=== PATIENT | female | born 1935 | race Caucasian/White ===

== ENCOUNTER 2017-07-20 05:25 | Day surgery (SDC) | payer MEDICARE ==
[2017-07-19 10:07] LABS: BASOPHILS 0.1 % (0-2); EOSINOPHILS 1.3 % (0-7); HEMATOCRIT 37.8 % (36.0-48.0); HEMOGLOBIN 13.2 g/dL (12-16); IMMATURE GRANULOCYTES 1.9 % (0-5); LYMPHOCYTES 15.3 % (15-50); MCH 31.1 pg (26.0-34.0); MCHC 34.9 g/dL (31.0-37.0); MCV 88.9 fL (80.0-100.0); MEAN PLATELET VOLUME 9.5 fL (7.4-10.4); MONOCYTES 13.8 % (2-11); NEUTROPHILS 67.6 % (40-80); PLATELET COUNT 322 10x3/uL (130-400); RBC 4.25 10x6/uL (4.00-5.40); RDW 13.5 % (11.5-14.5)
[2017-07-19 10:15] LABS: ANION GAP 12.4 mmol/L (8-16); CALCIUM 9.5 mg/dL (8.5-10.1); CARBON DIOXIDE 30.2 mmol/L (21.0-32.0); POTASSIUM - SERUM 3.6 mmol/L (3.5-5.1)
[2017-07-19 10:16] LABS: APTT 24.9 SECONDS (22.8-39.4); INR 0.96 (0.85-1.17); PROTIME 12.4 SECONDS (11.6-15.0)
[~2017-07-20] VITALS: Ht 167.6 cm; Wt 67.6 kg
[~2017-07-20 05:25] MED LIST: ASPIRIN EC81 M1 PO; CALTRATE 600 M600 M1 PO; FISH OIL 1,0001 CA1 PO; LOMOTIL TABLET1 TAB PO; NIACIN500 MG PO; NORVASC5 MG PO; SYNTHROID75 MCG PO; TOPROL XL50 MG PO; TRIAMTERENE-HCT1 TA1 PO
[2017-07-20 12:24] VITALS: BP 165/69; Ht 167.6 cm; Wt 67.6 kg
--- NOTE | 2017-07-20 18:46 | NUR ---
DISCHARGE PT STILL UNABLE TO URINATE. DR. ESCALONA NOTIFIED WHO ORDERED IT WAS OK FOR PT TO DISCAHRGE. DISCHARGE INSTRUCTIONS COMPLETE. PT HAS NO QUESTIONS OR CONCERNS. TRAMADOL PRESCRIPTION GIVEN. PT ESCORTED OUT BY [facility].
--- NOTE | 2017-07-28 13:27 | OP ---
PATIENT NAME: CHANNING OATES MEDICAL RECORD: [id number] :37 LOCATION:D.OPS ADMISSION DATE: SURGEON: RALPH ESCALONA MD DATE OF OPERATION: 07/20/2017 PREOPERATIVE DIAGNOSES: 1. Right abdominal wall hernia. 2. Left inframammary draining wound. POSTOPERATIVE DIAGNOSES: 1. Right spigelian hernia. 2. Intermittently draining left inframammary wound along the inframammary fold, please see dimensions below. PROCEDURES: Repair of right spigelian hernia with bilayered preperitoneal polypropylene mesh. Excisional debridement of left inframammary draining wound. Dimensions of debridement, including margins, were 2.9 cm x 1.8 cm. This included skin, subcutaneous tissue as well as the wound. The patient then underwent closure of the wound. This was an intermediate closure. SURGEON: Ralph Escalona MD ALUMINUM POURER: None. BLOOD LOSS: Minimal. ANESTHESIA: General. COMPLICATIONS: None. The risks, possible complications, and alternatives to procedure were explained to the patient. She elects to proceed. OPERATIVE COURSE: The patient was conveyed to the operating room electively on 07/20/2017. General anesthesia was induced by anesthesia staff. The right side of the abdomen as well as right groin were sterilely prepped and draped. A transverse incision was accomplished overlying the hernia defect. I dissected down to the external oblique aponeurosis and identified no hernia at this time; however, beneath the aponeurosis, I could feel some herniated contents. The external oblique aponeurosis was then incised along the direction of its fibers. I identified that the patient had a spigelian hernia. The hernia was reduced in its entirety. I was able to create extraperitoneal plane. Two ovals of polypropylene mesh were then cut and sutured together one on top of the other with a running #1 Surgidac. The mesh was placed in the extraperitoneal space. I then closed the wound by closing the internal oblique and transverse abdominis muscles overlying the mesh with multiple interrupted horizontal mattress of 0 Surgidac. The external oblique aponeurosis was then closed with running #1 Surgidac. The deep adipose tissue was closed with interrupted 3-0 Vicryls. The subcutaneous adipose tissue was closed with interrupted 3-0 Vicryls. The skin was approximated with a running intracuticular 4-0 Vicryl. Attention was then turned to the left inframammary incision. Through the use of OPERATIVE REPORT [id number] CHANNING OATES double curvilinear incisions, skin and subcutaneous tissue were excised along with the draining wound. Subcutaneous flaps were created sharply. The deep adipose tissue was closed with interrupted 3-0 Vicryls. The subcutaneous adipose tissue was closed with interrupted 3-0 Vicryls. The skin was closed with a running 4-0 Vicryl suture. Dermabond was then applied. The patient was then extubated and conveyed to post-anesthesia care unit where she was in stable condition. She will be dismissed home on tramadol. I will see her in the office in 2-3 weeks. TRANSINT:[id number] Voice Confirmation ID: [id number] DOCUMENT ID: [id number] RALPH ESCALONA MD at 1327 CC: [id number] DICTATION DATE: 07/20/17 1555 LEAD RAMP SERVICE MAN: 07/20/[address] [facility] 07/20/17 [id number] [place] [address]
--- NOTE | 2017-07-28 13:27 | HP ---
PATIENT: CHANNING OATES MEDICAL RECORD: [id number] ACCOUNT: [id number] LOCATION:[facility] : 37 ADMISSION DATE: 07/20/17 HISTORY AND PHYSICAL EXAMINATION Addendum The patient has a right abdominal wall hernia. It is cephalad to where I would expect a groin hernia to exist and certainly it is above far above the inguinal ligament, so this does not represent a femoral hernia. There is no incision in the area. Despite this, she does have a reducible hernia at this site. Additionally, she is intermittently draining left inframammary wound. It does respond to oral antibiotics. Has drained intermittently for a couple of decades. There is a history and physical on the chart. The history and physical examination is unchanged from the patient's visit to see me in the office. TRANSINT:[id number] Voice Confirmation ID: [id number] DOCUMENT ID: [id number] GIRMA ESCALONA MD at 1327 CC: [id number] DICTATION DATE: 07/20/17 1552 BAIL AGENT: 07/20/17 1701 [facility] 07/20/17 [facility] [address] [id number]
== END 2017-07-20 18:47 | disposition home or self-care (01) ==
LOC: D.OPS 05:25 → D.PAN 12:00 → D.OPS 12:00 → D.PAN 12:30 → D.OPS 18:47
PROVIDERS: Anesthesiology
DX: K40.90 Unilateral inguinal hernia, without obstruction or gangrene, not specified as recurrent (principal); N61.1 Abscess of the breast and nipple; I10 Essential (primary) hypertension; E03.9 Hypothyroidism, unspecified; K21.9 Gastro-esophageal reflux disease without esophagitis; Z01.812 Encounter for preprocedural laboratory examination